=== PATIENT | male | born 1990 | race African-American/Black ===

== ENCOUNTER 2022-03-25 11:21 | Emergency (ER) | payer SELFPAY ==
[2022-03-25] MEDS ORDERED: Orphenadrine Citrate 60 MG/2 ML VIAL ONE (12:27)
[2022-03-25] MEDS ORDERED: Ketorolac Tromethamine 30 MG/ML VIAL ONE (12:27)
== END 2022-03-25 12:49 | disposition home or self-care (01) ==
LOC: MADERS 11:21
DX: M79.18 Myalgia, other site (principal); F17.210 Nicotine dependence, cigarettes, uncomplicated
CPT/HCPCS: 96372; 99283; J1885; J2360

== ENCOUNTER 2022-06-30 08:57 | Emergency (ER) | payer OTHER, SELFPAY ==
[2022-06-30] MEDS ORDERED: Dicyclomine 10 MG CAP ONE (09:39)
[2022-06-30] MEDS ORDERED: Ondansetron ODT 4 MG TAB ONE (09:39)
[2022-06-30] MEDS ORDERED: Diphenoxylate HCl/Atropine Tablet ONE (09:39)
== END 2022-06-30 10:13 | disposition home or self-care (01) ==
LOC: MADERS 08:57
DX: J10.1 Influenza due to other identified influenza virus with other respiratory manifestations (principal); Z20.822 Contact with and (suspected) exposure to COVID-19; F17.210 Nicotine dependence, cigarettes, uncomplicated
CPT/HCPCS: 87804; 99284; Q0162; U0003; U0005